=== PATIENT | female | born 2000 | race Caucasian/White ===

== ENCOUNTER 2023-11-25 23:13 | Emergency (ER) | payer OTHER ==
[~2023-11-25] VITALS: Ht 152.4 cm; Wt 65.1 kg
[~2023-11-25 23:13] MED LIST: ACETAMINOP160 MG/55 PO; AMOXIL250 MG/5 M PO; BACTRIM 200 MG/30 ML PO; CLARITIN5 MG/5 ML PO; CONCERTA18 MG PO; STRATTERA10 MG PO
[2023-11-26] MEDS ORDERED: Ondansetron Hydrochloride 4 MG TAB SL ONE (00:40)
[2023-11-26 00:51] LABS: BASO % 0.4 % (0.0-1.0); EOS # 0.1 10*3/uL (0.0-0.4); EOS % 1.3 % (1.0-4.0); HEMATOCRIT 31.3 % (37.0-47.0); LYMPH # 2.6 10*3/uL (1.3-4.4); LYMPH % 24.9 % (27.0-41.0); MEAN CELL VOLUME 68.8 fl (81.0-99.0); MEAN CORPUSCULAR HGB 19.3 pg (27.0-31.0); MEAN CORPUSCULAR HGB CONC 28.1 g/dl (33.0-37.0); MEAN PLATELET VOLUME 9.9 fl (9.6-12.3); MONO # 0.9 10*3/uL (0.1-1.0); MONO % 8.7 % (3.0-9.0); NEUT # 6.6 10*3/uL (2.3-7.9); NEUT % 64.4 % (47.0-73.0); PLATELET COUNT AUTOMATED 278 10*3/uL (130-400); RED BLOOD COUNT 4.55 10*6/uL (4.10-5.10); RED CELL DISTRI WIDTH 18.6 % (0-14.5); WHITE BLOOD COUNT 10.3 10*3/uL (4.8-10.8)
[2023-11-26 01:11] LABS: BUN 12 mg/dl (9-23); CHLORIDE 106 mmol/L (98-107); LIPASE 36 U/L (12-53); POTASSIUM 3.8 mmol/L (3.4-5.1)
[2023-11-26 01:16] LABS: BILIRUBIN Negative (Negative); BLOOD 3+ (Negative); CLARITY Turbid (Clear); COLOR Red (Yellow); GLUCOSE Negative (Negative); KETONE Negative (Negative); LEUKO ESTERASE 2+ (Negative); NITRITE Negative (Negative); SPECIFIC GRAVITY 1.015 (1.001-1.030); UROBILINOGEN 0.2 E.U./dl (0.0-1.0)
[2023-11-26 01:23] LABS: RBC TNTC rbc/hpf (0-2); WBC 21-30 wbc/hpf (0-5)
[2023-11-26 01:24] LABS: BACTERIA 2+
[2023-11-26] MEDS ORDERED: CEPHALEXIN500 M1 PO (02:00)
== END 2023-11-26 02:06 | disposition home or self-care (01) ==
LOC: ED 23:13
PROVIDERS: Emergency Medicine
DX: N39.0 Urinary tract infection, site not specified (principal); R11.2 Nausea with vomiting, unspecified; Z88.1 Allergy status to other antibiotic agents; Z98.890 Other specified postprocedural states